=== PATIENT | female | born 1980 | race Caucasian/White ===

== ENCOUNTER 2025-01-18 13:29 | Emergency (ER) | payer MEDICAID, SELFPAY ==
[2025-01-18 13:31] VITALS: BP 118/75; PULSE 81; RESP 17; TEMP 36.6; O2SAT 96; BMI 25.0
--- NOTE | 2025-01-18 13:38 | PD.EDUPEX ---
Upper Extremity Injury RME/HPI General Chief Complaint: Extremity Injury, Upper Stated Complaint: RIGHT ARM PAIN Time Seen by Provider: 01/18/25 13:39 Arrival date/time: 01/18/25 13:29 RME / HPI RME / HPI narrative: DR. ECHEVERRIA MAIN ED EVALUATION: 44-year-old female with past medical history of asthma and tubal ligation presents to the Emergency Department [facility] via EMS for right shoulder and forearm pain that began yesterday. She denies any injury or trauma. No known medication allergies. History is notable for methamphetamine and marijuana use. Per EMS, patient was found at home stating she needed to urinate, she immediately urinated on herself. Related Data Allergies Allergy/AdvReac Type Severity Reaction Status Date / Time hydrocodone (From Vicodin) Allergy Severe Redness of Verified 10/13/23 10:37 Skin ibuprofen (From Motrin) Allergy Severe Abdominal Verified 10/13/23 10:37 Pain latex Allergy Severe HIVES Verified 10/13/23 10:37 tramadol Allergy Severe Redness of Verified 10/13/23 10:37 Skin Review of Systems Review of Systems Systems Reviewed: All systems reviewed, normal except as documented Past Medical History Past Medical History RESPIRATORY: Positive Asthma ENDOCRINE: Positive Hypoglycemia Surgical History SURGICAL: Positive Tubal Ligation Social History SMOKING STATUS: Current every day smoker SUBSTANCE USE: marijuana ED Exam Narrative Physical exam: GENERAL APPEARANCE: alert and oriented x 4, well-developed, well-nourished, no acute distress VITALS: All vitals were reviewed and the pulse ox is 96% on room air, which is normal according to my interpretation. HEENT: Normocephalic, atraumatic; pupils equal, round, reactive to light; EOMI; mucous membranes pink, moist; oropharynx clear NECK: Supple LUNGS: CTABL; no wheezes, no rales, no rhonchi HEART: Regular rate, regular rhythm; normal S1, S2; no murmurs ABDOMEN: non distended; normal BS; soft, no tenderness, no guarding, no rebound; no masses, no organomegaly, no hernia BACK: no CVA tenderness EXTREMITIES: atraumatic; no edema NEUROLOGIC: awake; alert and oriented x4; cranial nerves II-XII grossly intact; no focal sensory or motor deficits PSYCHIATRIC: appropriate mood and affect SKIN: warm, dry, normal color; no rashes Course Quality Measures none Orders Category Date Time Status US venous doppler UE RT Stat Exams 01/18/25 14:11 Completed XR humerus RT min 2V Stat Exams 01/18/25 14:22 Completed XR shoulder RT min 2V Stat Exams 01/18/25 14:22 Completed Ketorolac Inj [Toradol Inj] Med 01/18/25 14:10 Discontinued 30 mg IM X1 ONE Vital Signs Vital signs: Vital Signs Temperature 97.9 F 01/18/25 13:31 Pulse Rate 81 01/18/25 13:31 Respiratory Rate 17 01/18/25 13:31 Blood Pressure 118/75 01/18/25 13:31 Pulse Oximetry (%) 96 01/18/25 13:31 Oxygen Delivery Method Room Air 01/18/25 13:31 Extremity Injury MDM Narrative MDM Narrative:: ISobeida, am scribing for and in the presence of Dr. Echeverria. Patient data External records reviewed:: [facility] previous records and EMS form Clinical information provided by:: patient and EMS Social determinants that could affect healthcare access:: substance use (methamphetamine and marijuana use) Patient has the following chronic illnesses:: asthma and tubal ligation How is presenting disease/condition affected by chronic disease/condition?: uneffected by Evaluation data The following diagnostics were reviewed and interpreted by me:: radiology exam(s) Lab and/or radiology exams considered but not ordered:: none Interpretation Summary: Procedure(s): XR shoulder RT min 2V Accession Number(s): [id number] cc: Maximus Partida MD; Girma Hernandez MD; Maira Echeverria MD~ Examination: Shoulder,right, 3 views Technique: Shoulder AP internal rotation, AP external rotation, Y view shoulder, 3 views Exam date and time :Elevated, significant January 10, 2025 percent short January 10, 2025 1426 hours INDICATIONS: Right shoulder pain today. FINDINGS: Moderate narrowing glenohumeral joint No shoulder fracture or dislocation No calcific tendinitis IMPRESSION: Moderate narrowing glenohumeral joint Dictated By: Girma Hernandez MD Procedure(s): XR humerus RT min 2V Accession Number(s): [id number] cc: Maximus Partida MD; Girma Hernandez MD; Maira Echeverria MD~ Examination: Humerus 2 views right Technique: Humerus, AP lateral 2 views Date and time of exam: January 18, 2025 at 1426 hours INDICATIONS: Onset right arm pain today. FINDINGS: Humeral head neck and shaft appear intact No shoulder dislocation IMPRESSION: Intact humerus Dictated By: Girma Hernandez MD Procedure(s): US venous doppler UE RT Accession Number(s): [id number] cc: Maximus Partida MD; Girma Hernandez MD; Maira Echeverria MD~ Examination: Duplex scan of the upper extremity, unilateral right Date and time of exam: January 18, 2025 1519 hours INDICATIONS: Right arm swelling and pain today Technique: Duplex scan of the extremity veins using B-mode/grayscale imaging and Doppler spectral analysis and color flow Attention is directed to internal echogenicity, compression and augmentation involving these veins, color flow assessment, spectral analysis Findings: Major deep venous structures in the extremity demonstrate normal course and caliber. There is no evidence of deep vein thrombosis. Normal color flow and spectral analysis Impression: Negative for DVT.. Dictated By: Girma Hernandez MD Medications / Prescriptions Medications or Prescriptions considered but not ordered:: none Medication administrations:: Medication Administration History Discontinued Medications Ketorolac Tromethamine (Ketorolac Inj 60 Mg/2 Ml Vial) 30 mg IM X1 ONE Stop: 01/18/25 14:11 Last Admin: 01/18/25 16:07 Dose: 30 mg Documented By: EF see above if any Consultations Consultation(s) initiated? (list below): No Diagnosis Upper Extremity Injury Differential Diagnosis: other (musculoskeletal strain, cannabinoid-related altered sensorium, and urinary incontinence secondary to neurologic or intoxication-related cause) Most likely diagnosis given after review of the tests above:: Right arm pain Admission Indicated Admission indicated?: not indicated Admission Request Was there a request for admission?: No Disposition Plan Disposition Plan: Discharge Discharge Attestation Discharge Attestation: The patient and all family members were given an opportunity to ask questions and understood the discharge instructions. Discharge instructions specifically effects, indications for sooner follow up or return to the emergency department, and the expected course of current diagnosis. Patient condition: Stable Discharge Plan Plan Patient Disposition: HOME (Self Care) Prescriptions/Referrals Referrals: Maximus Partida MD [Primary Care Provider] - In 1 week Problem List Clinical Impression: Right arm pain Patient/Caregiver Discharge Instructions Education Materials: ED Pain, Acute, Uncertain Cause Print Language: Kiswahili Stand Alone Forms: Tracy Award Info., Patient Portal Info Letter
[2025-01-18 13:42] VITALS: PULSE 80; O2SAT 99
--- NOTE | 2025-01-18 14:11 | XR_ITS ---
Examination: Duplex scan of the upper extremity, unilateral right Date and time of exam: January 18, 2025 1519 hours INDICATIONS: Right arm swelling and pain today Technique: Duplex scan of the extremity veins using B-mode/grayscale imaging and Doppler spectral analysis and color flow Attention is directed to internal echogenicity, compression and augmentation involving these veins, color flow assessment, spectral analysis Findings: Major deep venous structures in the extremity demonstrate normal course and caliber. There is no evidence of deep vein thrombosis. Normal color flow and spectral analysis Impression: Negative for DVT..
--- NOTE | 2025-01-18 14:22 | XR_ITS ---
Examination: Humerus 2 views right Technique: Humerus, AP lateral 2 views Date and time of exam: January 18, 2025 at 1426 hours INDICATIONS: Onset right arm pain today. FINDINGS: Humeral head neck and shaft appear intact No shoulder dislocation IMPRESSION: Intact humerus
--- NOTE | 2025-01-18 14:22 | XR_ITS ---
Examination: Shoulder,right, 3 views Technique: Shoulder AP internal rotation, AP external rotation, Y view shoulder, 3 views Exam date and time :Elevated, significant January 10, 2025 percent short January 10, 2025 1426 hours INDICATIONS: Right shoulder pain today. FINDINGS: Moderate narrowing glenohumeral joint No shoulder fracture or dislocation No calcific tendinitis IMPRESSION: Moderate narrowing glenohumeral joint
[2025-01-18 15:19] VITALS: BP 140/88; PULSE 82; RESP 15; O2SAT 99
[2025-01-18] MEDS: KETOROLAC INJ 60 MG/2 ML VIAL 30 MG IM (16:07)
[2025-01-18 16:34] VITALS: BP 136/93; PULSE 77; RESP 15; O2SAT 99
[2025-01-18 16:37] VITALS: BP 136/93; PULSE 70; RESP 16; O2SAT 100
== END 2025-01-18 16:38 | disposition home or self-care (01) ==
PROVIDERS: Emergency Provider Emergency Medicine; PCP Family Medicine
DX: M25.811 Other specified joint disorders, right shoulder (principal); M79.601 Pain in right arm; M79.89 Other specified soft tissue disorders
CPT/HCPCS: 73030; 73060; 93971; 96372; 99283; J1885